=== PATIENT | female | born 1985 | race Caucasian/White ===

== ENCOUNTER 2019-06-30 12:57 | Emergency (ER) | payer MEDICAID, SELFPAY ==
[2019-06-30 12:59] VITALS: BP 117/74; PULSE 96; RESP 18; TEMP 36.4; O2SAT 100; BMI 32.9
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
--- NOTE | 2019-06-30 14:43 | ED.VISSUMM ---
- ER Visit Summary Date of Service: 06/30/19 Chief Complaint: Cough History of Present Illness: The patient is a 33 F with a cough for several weeks. Associated with sputum. Denies hemoptysis. Denies fevers. She has some chest pain in her upper chest over the midline and her upper back with coughing. Nothing with exertion. No history of heart disease or lung disease except she recently had pneumonia. She was treated with Keflex and completed the course. Physical Examination: Afebrile and vital signs unremarkable. Alert and oriented. No acute distress. HEENT exam normal inspection. Heart regular. Lungs clear. Abdomen soft. Extremities no edema and no calf tenderness. Neurovascular intact. Test Results: Chest x-ray showed nothing acute. Emergency Department Course and Treatment: Patient has infectious symptoms. There is nothing to suggest PE, cardiac pathology, aortic disease. X-rays were unremarkable. This is likely bronchitis. Patient will be treated with a course of Augmentin given the duration. She was also referred to local PRODUCT[facility]DEVICE TECHNOLOGIST for follow-up. Treatment Plan: As above Disposition: Discharge Impression: 1. Bronchitis This note was generated with [employer] dictation software. It may contain incorrect words, spelling, and punctuation that were not noted in review of the chart prior to signing ED Disposition - Plan for ED Patient: Referrals: Care Physician,No Primary [Primary Care Provider] -
--- NOTE | 2019-06-30 14:47 | ED.DEP ---
ED Disposition - Plan for ED Patient: Instructions: BRONCHITIS, Antiobiotic Treatment (Adult) Prescriptions: Amox/Clavulanate Tablet [Augmentin Tablet] 875 mg PO Q12H #20 tab Prescription Printed Referrals: Caroline Powell MD [STAFF PHYSICIAN] -
[2019-06-30] MEDS: Amox/Clavulanate 875 MG Tablet PO (14:53)
== END 2019-06-30 14:59 | disposition home or self-care (01) ==
LOC: ED 13:32
PROVIDERS: Emergency Provider Emergency Medicine
DX: J40 Bronchitis, not specified as acute or chronic (principal); Z87.891 Personal history of nicotine dependence
CPT/HCPCS: 71046; 99283